=== PATIENT | male | born 1950 | race Caucasian/White ===

== ENCOUNTER 2016-08-06 20:23 | Inpatient (IN) | payer BC ==
[~2016-08-06] VITALS: Ht 177.8 cm; Wt 95.3 kg
[~2016-08-06 20:23] MED LIST: ASPI-495; ATOR10TA; CLOP75TA2; EZET10TA; GLIP2.5T16; LISI2.5T2; METF500T4; METO25TA6
[2016-08-06] MEDS ORDERED: VANCOMYCIN 1 GM in IV D5W 250 ML IV ONE (22:00)
[2016-08-06] MEDS ORDERED: HYDROCODONE/APAP 5/325MG 1 EACH TABLET PO ONE (22:00)
[2016-08-06] MEDS ORDERED: CEFTRIAXONE 1GM BAG (ER ONLY) 50 ML IV ONE ×2 (22:00→22:07)
[2016-08-06] MEDS ORDERED: IV NS 0.9% 1,000 ML BAG IV ONE (22:00)
[2016-08-06] MEDS ORDERED: IV D5W 250 ML IV ONE (22:07)
[2016-08-06] MEDS ORDERED: IV NS 0.9% 1,000 ML ONE (22:07)
[2016-08-06] MEDS ORDERED: IV SET PRIMARY 1 EA INFUS.SET MC ONE (22:07)
[2016-08-06] MEDS ORDERED: VANCOMYCIN 1 GM VIAL ONE (22:07)
[2016-08-06] MEDS ORDERED: HYDROCODONE/APAP 5/325MG 1 EACH TABLET ONE (22:07)
[2016-08-06] MEDS ORDERED: IV SET PRIMARY PUMP SET 1 EA INFUS.SET MC ONE (22:08)
[2016-08-06 22:10] LABS: BASOPHILS % (AUTO) 0.2 % (0.0-2.0); DIFF TOTAL % 100 %; EOSINOPHILS # (AUTO) 0.1 /CMM (0.0-0.7); EOSINOPHILS % (AUTO) 0.6 % (0.0-6.0); HEMATOCRIT 43 % (39-51); HEMOGLOBIN 13.9 g/dL (13.5-17.5); LYMPHOCYTES # (AUTO) 1.3 /CMM (0.8-4.8); LYMPHOCYTES % (AUTO) 13.3 % (20.0-44.0); MEAN CORPUSCULAR HEMOGLOBIN 27 PG (26.0-33.0); MEAN CORPUSCULAR HGB CONC 33 g/dl (31.0-36.0); MEAN CORPUSCULAR VOLUME 84 fL (80-96); MONOCYTES # (AUTO) 0.8 /CMM (0.1-1.30); MONOCYTES % (AUTO) 8.9 % (2.0-12.0); NEUTROPHILS # (AUTO) 7.3 /CMM (1.8-8.9); PLATELET COUNT (AUTO) 160 /CMM (150-450); RED BLOOD CELL COUNT(AUTO) 5.09 MIL/uL (4.5-6.0); WHITE BLOOD COUNT (AUTO) 9.5 K/uL (4.3-11.0)
[2016-08-06 22:22] LABS: CALCIUM, SERUM 8.7 mg/dL (8.5-10.1); CREATININE 1.6 mg/dL (0.6-1.3)
[2016-08-06 22:28] LABS: ALBUMIN 3.7 g/dL (3.4-5.0); BILIRUBIN,DIRECT 0.1 mg/dL (0.0-0.2); BILIRUBIN,TOTAL 0.6 mg/dL (0.2-1.0); INDIRECT BILIRUBIN 0.5 mg/dL (0.0-1.1); TOTAL PROTEIN, SERUM 7.7 g/dL (6.4-8.2)
[2016-08-06 22:31] LABS: LACTIC ACID 1.8 mmol/L (0.4-2.0)
[2016-08-06 22:33] LABS: INR 0.99 (0.87-1.13); PROTHROMBIN TIME 10.7 SECS (9.5-12.7)
[2016-08-07 00:15] VITALS: BP 162/78
[2016-08-07] MEDS ORDERED: INSULIN REGULAR, HUMAN 100 UNIT/ML 10 ML VIAL ONE (02:29)
[2016-08-07] MEDS ORDERED: Z GUARD REMEDY 2 OZ OINT TP PRN (02:30)
[2016-08-07] MEDS ORDERED: DEXTROSE 50%-WATER 50 ML DISP.SYRIN IV PRN (02:30)
[2016-08-07] MEDS ORDERED: ZOLPIDEM TARTRATE 5 MG TABLET PO PRN (02:30)
[2016-08-07] MEDS ORDERED: ENOXAPARIN SODIUM 40 MG/0.4 ML DISP.SYRIN SQ SCH (02:30)
[2016-08-07] MEDS ORDERED: ONDANSETRON HCL/PF 4 MG/2 ML VIAL IVP PRN (02:30)
[2016-08-07] MEDS: INSULIN REGULAR, HUMAN 100 UNIT/ML 3 ML VIAL SQ PRN ×3 (02:38→17:32)
[2016-08-07 03:46] VITALS: BP 162/78
[2016-08-07] MEDS ORDERED: LORA1TAB82 PO (04:26)
[2016-08-07] MEDS ORDERED: LORAZEPAM 1 MG TABLET ONE (04:32)
[2016-08-07] MEDS ORDERED: ENOXAPARIN SODIUM 40 MG/0.4 ML DISP.SYRIN SQ ONE (04:32)
[2016-08-07] MEDS: LORAZEPAM 1 MG TABLET PO PRN ×2 (04:38→23:43)
[2016-08-07] MEDS: BLOOD SUGAR DIAGNOSTIC 1 EACH STRIP IN SCH ×4 (06:57→20:56)
[2016-08-07 08:00] VITALS: BP 157/75
[2016-08-07] MEDS ORDERED: FEE PK DOSING 1 MIN EA MC ONE (08:40)
[2016-08-07] MEDS: ASPIRIN EC 81 MG TABLET.DR PO SCH (08:52)
[2016-08-07] MEDS: EZETIMIBE 10 MG TABLET PO SCH (08:52)
[2016-08-07] MEDS: CLOPIDOGREL BISULFATE 75 MG TABLET PO SCH (08:52)
[2016-08-07] MEDS: LISINOPRIL (5MG) 5 MG TABLET PO SCH (08:53)
[2016-08-07] MEDS: METOPROLOL TARTRATE 25 MG TABLET PO SCH (08:53)
[2016-08-07] MEDS ORDERED: METFORMIN 500 MG TABLET PO SCH (09:00)
[2016-08-07] MEDS: HYDROCODONE/APAP 5/325MG 1 EACH TABLET PO PRN ×3 (09:02→21:02)
[2016-08-07] MEDS: glipiZIDE XL 2.5 MG TAB.OSM.24 PO SCH (09:50)
[2016-08-07] MEDS: ACETAMINOPHEN 325 MG TABLET PO PRN ×2 (11:39→23:36)
[2016-08-07 13:25] LABS: THYROID STIMULATING HORMONE 3.906 uIU/mL (0.358-3.74)
[2016-08-07 16:00] VITALS: BP 133/68
[2016-08-07] MEDS ORDERED: IV SET PRIMARY PUMP SET 1 EA INFUS.SET MC ONE (16:42)
[2016-08-07] MEDS ORDERED: SECONDARY IV SET 1 EA INFUS.SET MC ONE (16:46)
[2016-08-07] MEDS: IV NS 0.9% 1,000 ML IV PRN (16:49)
[2016-08-07] MEDS: VANCOMYCIN 1.25 GM in IV D5W 500 ML IV SCH (16:49)
[2016-08-07 20:00] VITALS: BP 159/78
[2016-08-07] MEDS: ATORVASTATIN 10 MG TABLET PO SCH (21:01)
[2016-08-07 22:00] VITALS: BP 159/78
[2016-08-08] MEDS: BLOOD SUGAR DIAGNOSTIC 1 EACH STRIP IN SCH ×4 (05:38→20:50)
[2016-08-08] MEDS: IV NS 0.9% 1,000 ML IV PRN ×2 (06:16→08:43)
[2016-08-08 06:56] LABS: BASOPHILS % (AUTO) 0.2 % (0.0-2.0); DIFF TOTAL % 100 %; EOSINOPHILS # (AUTO) 0.1 /CMM (0.0-0.7); EOSINOPHILS % (AUTO) 1.6 % (0.0-6.0); HEMATOCRIT 38 % (39-51); HEMOGLOBIN 12.5 g/dL (13.5-17.5); LYMPHOCYTES # (AUTO) 1.4 /CMM (0.8-4.8); LYMPHOCYTES % (AUTO) 18.2 % (20.0-44.0); MEAN CORPUSCULAR HEMOGLOBIN 28 PG (26.0-33.0); MEAN CORPUSCULAR HGB CONC 33 g/dl (31.0-36.0); MEAN CORPUSCULAR VOLUME 84 fL (80-96); MONOCYTES # (AUTO) 0.8 /CMM (0.1-1.30); MONOCYTES % (AUTO) 9.9 % (2.0-12.0); NEUTROPHILS # (AUTO) 5.6 /CMM (1.8-8.9); NEUTROPHILS % (AUTO) 70.1 % (43.0-81.0); PLATELET COUNT (AUTO) 153 /CMM (150-450); RED BLOOD CELL COUNT(AUTO) 4.49 MIL/uL (4.5-6.0); WHITE BLOOD COUNT (AUTO) 7.9 K/uL (4.3-11.0)
[2016-08-08 07:39] LABS: CALCIUM, SERUM 8.6 mg/dL (8.5-10.1); CREATININE 1.3 mg/dL (0.6-1.3); PHOSPHORUS 2.7 mg/dL (2.5-4.9); POTASSIUM 4.1 mmol/L (3.5-5.1)
[2016-08-08 07:47] LABS: THYROID STIMULATING HORMONE 5.488 uIU/mL (0.358-3.74)
[2016-08-08 08:00] VITALS: BP 158/89
[2016-08-08] MEDS ORDERED: REGADENOSON 0.4 MG/5 ML DISP.SYRIN IVP ONE (08:00)
[2016-08-08] MEDS: METOPROLOL TARTRATE 25 MG TABLET PO SCH ×2 (08:23→17:09)
[2016-08-08] MEDS: HYDROCODONE/APAP 5/325MG 1 EACH TABLET PO PRN ×4 (08:24→23:16)
[2016-08-08] MEDS: EZETIMIBE 10 MG TABLET PO SCH (08:25)
[2016-08-08] MEDS: LISINOPRIL (5MG) 5 MG TABLET PO SCH (08:25)
[2016-08-08] MEDS: CLOPIDOGREL BISULFATE 75 MG TABLET PO SCH (08:25)
[2016-08-08] MEDS: ASPIRIN EC 81 MG TABLET.DR PO SCH (08:25)
[2016-08-08] MEDS: ENOXAPARIN SODIUM 40 MG/0.4 ML DISP.SYRIN SQ SCH (08:26)
[2016-08-08] MEDS: glipiZIDE XL 2.5 MG TAB.OSM.24 PO SCH (08:26)
[2016-08-08] MEDS ORDERED: SECONDARY IV SET 1 EA INFUS.SET MC ONE ×3 (09:39→17:04)
[2016-08-08] MEDS: Magnesium 1GM/D5W 100ML PREMIX 100 ML IV SCH ×2 (09:47→15:04)
[2016-08-08] MEDS ORDERED: Magnesium 1GM/D5W 100ML PREMIX 100 ML IV SCH (09:51)
[2016-08-08] MEDS: VANCOMYCIN 1.25 GM in IV D5W 500 ML IV SCH (11:58)
[2016-08-08] MEDS: INSULIN REGULAR, HUMAN 100 UNIT/ML 3 ML VIAL SQ PRN ×3 (12:09→20:57)
[2016-08-08 12:17] LABS: ALBUMIN 3.2 g/dL (3.4-5.0); BILIRUBIN,TOTAL 0.7 mg/dL (0.2-1.0)
[2016-08-08] MEDS ORDERED: SOD FERRIC GLUC 125 MG in IV NS 0.9% 100 ML IV SCH (14:00)
[2016-08-08 16:00] VITALS: BP 163/83
[2016-08-08] MEDS ORDERED: CEFTRIAXONE 1 G in IV D5W 50 ML IV SCH (17:00)
[2016-08-08 19:53] VITALS: BP 157/80
[2016-08-08] MEDS: ACETAMINOPHEN 325 MG TABLET PO PRN (20:50)
[2016-08-08] MEDS: ATORVASTATIN 10 MG TABLET PO SCH (21:02)
[2016-08-08 22:00] VITALS: BP 157/80
[2016-08-09] MEDS: HYDROCODONE/APAP 5/325MG 1 EACH TABLET PO PRN (03:21)
[2016-08-09 04:31] LABS: BASOPHILS % (AUTO) 0.3 % (0.0-2.0); DIFF TOTAL % 100 %; EOSINOPHILS # (AUTO) 0.2 /CMM (0.0-0.7); HEMATOCRIT 38 % (39-51); HEMOGLOBIN 12.5 g/dL (13.5-17.5); LYMPHOCYTES # (AUTO) 1.4 /CMM (0.8-4.8); LYMPHOCYTES % (AUTO) 19.4 % (20.0-44.0); MEAN CORPUSCULAR HEMOGLOBIN 28 PG (26.0-33.0); MEAN CORPUSCULAR HGB CONC 33 g/dl (31.0-36.0); MEAN CORPUSCULAR VOLUME 84 fL (80-96); MONOCYTES # (AUTO) 0.9 /CMM (0.1-1.30); MONOCYTES % (AUTO) 12.2 % (2.0-12.0); NEUTROPHILS # (AUTO) 4.8 /CMM (1.8-8.9); NEUTROPHILS % (AUTO) 65.1 % (43.0-81.0); PLATELET COUNT (AUTO) 167 /CMM (150-450); RED BLOOD CELL COUNT(AUTO) 4.47 MIL/uL (4.5-6.0); WHITE BLOOD COUNT (AUTO) 7.4 K/uL (4.3-11.0)
[2016-08-09 04:54] LABS: ALBUMIN 2.9 g/dL (3.4-5.0); BILIRUBIN,TOTAL 0.8 mg/dL (0.2-1.0); CALCIUM, SERUM 8.3 mg/dL (8.5-10.1); CREATININE 1.4 mg/dL (0.6-1.3); PHOSPHORUS 3.2 mg/dL (2.5-4.9); TOTAL PROTEIN, SERUM 6.8 g/dL (6.4-8.2)
[2016-08-09] MEDS: VANCOMYCIN 1.25 GM in IV D5W 500 ML IV SCH (05:51)
[2016-08-09] MEDS: BLOOD SUGAR DIAGNOSTIC 1 EACH STRIP IN SCH ×2 (05:52→13:00)
[2016-08-09] MEDS: INSULIN REGULAR, HUMAN 100 UNIT/ML 3 ML VIAL SQ PRN ×2 (06:01→13:33)
[2016-08-09] MEDS ORDERED: LISINOPRIL (5MG) 5 MG TABLET PO SCH (09:00)
[2016-08-09] MEDS: ENOXAPARIN SODIUM 40 MG/0.4 ML DISP.SYRIN SQ SCH (09:00)
[2016-08-09] MEDS: glipiZIDE XL 2.5 MG TAB.OSM.24 PO SCH (09:52)
[2016-08-09] MEDS: CLOPIDOGREL BISULFATE 75 MG TABLET PO SCH (09:52)
[2016-08-09] MEDS: EZETIMIBE 10 MG TABLET PO SCH (09:52)
[2016-08-09] MEDS: ASPIRIN EC 81 MG TABLET.DR PO SCH (09:52)
[2016-08-09 09:54] VITALS: BP 149/79
[2016-08-09] MEDS: METOPROLOL TARTRATE 25 MG TABLET PO SCH (09:54)
== END 2016-08-09 15:08 | disposition home or self-care (01) | DRG 602 ==
LOC: ER 20:23 → MED 23:42
PROVIDERS: ADMIT Nurse Practitioner Acute Care; ATTEND Nurse Practitioner Acute Care
DX: L03.115 Cellulitis of right lower limb (principal); N17.0 Acute kidney failure with tubular necrosis; M94.0 Chondrocostal junction syndrome [Tietze]; I25.10 Atherosclerotic heart disease of native coronary artery without angina pectoris; E11.65 Type 2 diabetes mellitus with hyperglycemia; E03.9 Hypothyroidism, unspecified; E78.5 Hyperlipidemia, unspecified; F41.9 Anxiety disorder, unspecified; I10 Essential (primary) hypertension; Z98.61 Coronary angioplasty status; D50.9 Iron deficiency anemia, unspecified; E83.42 Hypomagnesemia
CPT/HCPCS: 36415; 73564-TC; 80048-TC; 80053-TC; 80061-TC; 80076-TC; 80202-TC; 82962-TC; 83540-TC; 83605-TC; 83735-TC; 84100-TC; 84439-TC; 84443-TC; 85025-TC; 85730-TC; 87040-TC; 87081-TC; 93307-TC; A4606; A9502; J0696; J1650; J1815; J2405; J2785; J2916; J3370; J3475; J7030; J7060; Z7610